=== PATIENT | male | born 1945 | race Caucasian/White ===

== ENCOUNTER 2018-07-08 17:16 | Emergency (ER) | payer MEDICARE ==
[2018-07-08 17:29] VITALS: BP 156/89
--- NOTE | 2018-07-08 17:39 | UC ---
Hand/Wrist HPI - HPI Summary HPI Summary: [place]05 when he was tripped and went sprawling, landing on his right arm and hand. Considerable increase in bruising and swelling of the right forearm and hand over the past 2 days. Ongoing pain in the thumb and hand, with pain with movement of the wrist. No hx of aspirin use or supplements aside from B12. Vegan diet without any use of alcohol. - History Of Current Complaint Chief Complaint: UCUpperExtremity Stated Complaint: R WRIST, THUMB INJURY Time Seen by Provider: 07/08/18 17:28 Hx Obtained From: Patient Onset/Duration: Sudden Onset, Lasting Days - 3 Severity Initially: Moderate Severity Currently: Moderate Pain Intensity: 5 Character Of Pain: Aching Aggravating Factor(s): Movement, Lifting Alleviating Factor(s): Ice - Only using ice for relief of pain. Associated Signs And Symptoms: Positive: Swelling, Bruising Related History: Dominant Hand Right - but uses left for many tasks. - Allergies/Home Medications Allergies/Adverse Reactions: Allergies Allergy/AdvReac Type Severity Reaction Status Date / Time No Known Allergies Allergy Verified 07/08/18 17:22 Home Medications: Home Medications NK [No Home Medications Reported] 07/08/18 [History Confirmed 07/08/18] PMH/Surg Hx/FS Hx/Imm Hx Previously Healthy: Yes - Surgical History Surgical History: Yes Surgery Procedure, Year, and Place: DENTAL - Family History Known Family History: Positive: Non-Contributory - Social History Occupation: Retired - but still actively managing properties. Alcohol Use: None Substance Use Type: None Smoking Status (MU): Never Smoked Tobacco Review of Systems All Other Systems Reviewed And Are Negative: Yes Constitutional: Positive: Negative Skin: Positive: Negative Eyes: Positive: Negative ENT: Positive: Negative Respiratory: Positive: Negative Cardiovascular: Positive: Other - typically blood pressures are well in the normal range. Gastrointestinal: Positive: Negative Genitourinary: Positive: Negative Motor: Positive: Negative Neurovascular: Positive: Negative Musculoskeletal: Positive: Arthralgia Neurological: Positive: Negative Psychological: Positive: Negative Is Patient Immunocompromised?: No Physical Exam Triage Information Reviewed: Yes Appearance: Well-Appearing, Pain Distress - mild, Thin Vital Signs: Initial Vital Signs Temp 97.3 F 07/08/18 17:22 Pulse 71 07/08/18 17:22 Resp 16 07/08/18 17:22 BP 156/89 07/08/18 17:22 Pulse Ox 99 07/08/18 17:22 ENT Exam: Normal Respiratory: Positive: Lungs clear, Normal breath sounds Cardiovascular: Positive: RRR, No Murmur Musculoskeletal Exam: Other - No tenderness to palpation radial head, olecranon , full rom in the elbow. Normal pulses Musculoskeletal: Positive: ROM Limited @ - wrist without tenderness, no scaphoid tenderness. Full passive range in the wrist. Decreased range right first MCP joint. Neurological Exam: Normal Neurological: Positive: Alert, Muscle Tone Normal Skin Exam: Other - ecchymoses volar surface of forearm and dorsum of hand. Superficial abrasions elbow and hand, healing well Diagnostics - Laboratory Diagnostic Studies Completed/Ordered: xray right hand without fracture per ; Dr. Arcos read as diffuse osteopenia, no fracture. Hand/Wrist Course/Dx - Course Course Of Treatment: sling, ice, rest, analgesics if needed, follow up as needed with PMD - Differential Dx/Diagnosis Differential Diagnosis/HQI/PQRI: Contusion, Fracture, Sprain, Strain Provider Diagnosis: Contusion of right hand, initial encounter Discharge - Sign-Out/Discharge Documenting (check all that apply): Patient Departure All imaging exams completed and their final reports reviewed: Yes - Discharge Plan Condition: Stable Disposition: HOME Patient Education Materials: Contusion in Adults (ED) Referrals: Eric Bella MD [Primary Care Provider] - Additional Instructions: You have significant bruising as a result of your fall, but no evidence of fracture. Your right arm is being supported in a sling for comfort. Continue ice to the hand and use ibuprofen or acetaminophen as needed for control of pain. Follow up with Dr. Phoenix if you have persistent pain or restricted motion to consider repeat or additional imaging. - Billing Disposition and Condition Condition: STABLE Disposition: Home
== END 2018-07-08 18:22 | disposition home or self-care (01) ==
LOC: UCEAST 17:16
DX: S60.221A Contusion of right hand, initial encounter (principal); W01.0XXA Fall on same level from slipping, tripping and stumbling without subsequent striking against object, initial encounter; Y93.02 Activity, running; Y92.9 Unspecified place or not applicable
CPT/HCPCS: 99201; G0463

== ENCOUNTER 2018-07-19 14:47 | Emergency (ER) | payer MEDICARE ==
[2018-07-19 15:31] VITALS: BP 144/91
--- NOTE | 2018-07-19 15:49 | UC ---
Hand/Wrist HPI - HPI Summary HPI Summary: 73 yo male presents with right thumb injury. He tells me that on 07/05/18 he fell and injured his right thumb. He was seen here on 07/08/18 and XR was negative. He is here today because he is still having pain. He was not given a brace or referral. Denies numbness or tingling - History Of Current Complaint Chief Complaint: UCUpperExtremity Stated Complaint: THUMB PAIN Time Seen by Provider: 07/19/18 15:49 Hx Obtained From: Patient Onset/Duration: Sudden Onset Severity Initially: Moderate Severity Currently: Moderate Pain Intensity: 6 Pain Scale Used: 0-10 Numeric - Allergies/Home Medications Allergies/Adverse Reactions: Allergies Allergy/AdvReac Type Severity Reaction Status Date / Time No Known Allergies Allergy Verified 07/19/18 15:32 PMH/Surg Hx/FS Hx/Imm Hx - Additional Past Medical History Additional PMH: None - Surgical History Surgical History: Yes Surgery Procedure, Year, and Place: DENTAL - Family History Known Family History: Positive: Non-Contributory - Social History Lives: With Family Alcohol Use: None Substance Use Type: None Smoking Status (MU): Never Smoked Tobacco Review of Systems All Other Systems Reviewed And Are Negative: Yes Constitutional: Positive: Negative Skin: Positive: Negative Respiratory: Positive: Negative Cardiovascular: Positive: Negative Neurovascular: Positive: Negative Musculoskeletal: Positive: Other: - Right thumb pain Neurological: Positive: Negative Psychological: Positive: Negative Physical Exam - Summary Physical Exam Summary: GENERAL: NAD. WDWN. No pain distress. SKIN: No rashes, sores, lesions, or open wounds. CHEST: No accessory muscle use. Breathing comfortably and in no distress. CV: Pulses intact radial and ulnar. Cap refill <2seconds MSK: RIGHT thumb: Mild TTP at MCP. Pain with flexion at MCP. Strength 5/5 including unit trust manager strength. No edema or obvious bony deformities. No snuffbox tenderness. NEURO: Alert. Sensations intact hand and all fingers. PSYCH: Age appropriate behavior. Triage Information Reviewed: Yes Vital Signs: Initial Vital Signs Temp 98.5 F 07/19/18 15:28 Pulse 69 07/19/18 15:28 Resp 18 07/19/18 15:28 BP 144/91 07/19/18 15:28 Pulse Ox 100 07/19/18 15:28 Vital Signs Reviewed: Yes Hand/Wrist Course/Dx - Course Course Of Treatment: He was given a thumb spica brace to use as much as possible and will refer him to ortho for further evaluation - Differential Dx/Diagnosis Provider Diagnosis: Pain of right thumb Discharge - Sign-Out/Discharge Documenting (check all that apply): Patient Departure All imaging exams completed and their final reports reviewed: No Studies - Discharge Plan Condition: Stable Disposition: HOME Patient Education Materials: Finger Sprain (ED) Referrals: Eric Bella MD [Primary Care Provider] - Nesha Harry MD [Medical Doctor] - As Soon As Possible Additional Instructions: If you develop a fever, shortness of breath, chest pain, new or worsening symptoms - please call your PCP or go to the ED. Your blood pressure was high at todays visit. Please see your primary provider within 4 weeks for recheck and re-evaluation. 1) Use the thumb brace as much as possible 2) Please call Orthopedics at the number below to schedule a follow up appointment as soon as possible for further evaluation - Billing Disposition and Condition Condition: STABLE Disposition: Home
== END 2018-07-19 16:16 | disposition home or self-care (01) ==
LOC: UCEAST 14:47
DX: M79.644 Pain in right finger(s) (principal); W19.XXXA Unspecified fall, initial encounter; Y92.9 Unspecified place or not applicable
CPT/HCPCS: 99212; G0463